=== PATIENT | female | born 2000 | race Caucasian/White ===

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

== ENCOUNTER 2023-03-23 23:51 | Emergency (ER) | payer MEDICAID, SELFPAY ==
[2023-03-24 00:04] VITALS: BP 130/80; PULSE 84; RESP 16; TEMP 37; O2SAT 99; BMI 23.8
[2023-03-24 01:30] LABS: Basophils % 0.4 %; Eosinophils % 0.1 %; Hematocrit 38.5 % (37.0-47.0); Hemoglobin 12.4 g/dL (11.5-15.3); Lymphocytes # 1.5 10^3/uL (1.5-6.5); Lymphocytes % 18.2 %; Mean Corpuscular HGB Conc 32.2 g/dL (30.0-36.0); Mean Corpuscular Hemoglobin 29.7 pg (28.0-34.0); Mean Corpuscular Volume 92.1 fl (81-99); Mean Platelet Volume 9.8 fL (7.4-10.4); Monocytes # 0.6 10^3/uL (0.2-0.9); Monocytes % 7.7 %; Neutrophils # 6.04 10^3/uL (1.8-8.0); Neutrophils % 73.5 %; Nucleated Red Blood Cells % 0 %; Platelet Count 262 10^3/cmm (130-400); Red Blood Count 4.18 10^6/uL (4.1-5.3); Red Cell Distribution Width 12.1 % (12.1-15.1); White Blood Count 8.2 10^3/uL (4.5-13.0)
[2023-03-24 01:32] LABS: HCG, Serum Qual Negative (Negative)
[2023-03-24 01:42] LABS: Alanine Aminotransferase 16 U/L (0-33); Albumin Level 4.9 g/dL (3.5-5.2); Alkaline Phosphatase 63 U/L (35-105); Anion Gap 15.6 (5-19); Aspartate Amino Transferase 16 U/L (0-32); Blood Urea Nitrogen 7 mg/dL (6-20); Calcium 9.8 mg/dL (8.5-10.5); Carbon Dioxide 25 mmol/L (22-29); Chloride 105 mmol/L (98-107); Creatinine Clr Calc Pharmacy 108.5709; Globulin 3.3 g/dL (1.3-4.6); Glomerular Filtration Rate 106.7 mL/min (90-130); Glucose 90 mg/dL (65-115); Lipase 35 U/L (13-60); Osmolality Calculated 292 mOsm/kg (285-295); Potassium 3.6 mmol/L (3.5-5.1); Sodium 142 mmol/L (136-145); Total Protein 8.2 g/dL (6.6-8.7)
--- NOTE | 2023-03-24 02:35 | W.ED.ABDPA2 ---
HPI - Abdominal Pain General: Chief Complaint: Abdominal Pain Stated Complaint: abdomen x 3 weeks, nausea Time Seen by Provider: 03/24/23 00:10 Source: patient Mode of arrival: ambulatory Limitations: no limitations History of Present Illness: 22-year-old female states she been having abdominal pain over the last 3 weeks. States intermittent nature seems worse when she flexes her abdomen is a sharp pain. She describes the pain is diffuse to me. She said it moved right lower quadrant in triage but she states that she is cut hurts all over at times states she is in no pain right now she states that not tender to touch at all when she pushes on her abdomen. She had some nausea denies any vomiting or diarrhea denies any vaginal discharge. Associated Symptoms: Denies chills, diarrhea, dysuria, fever(s), nausea and vomiting Review of Systems Const: Denies: fever(s), chills, body aches or change in appetite ENMT: Denies: throat pain or dental pain Card: Denies: chest pain Resp: Denies: dyspnea GI: Reports: abdominal pain; Denies: nausea, vomiting or diarrhea : Denies: dysuria Musc: Denies: neck pain or back pain Skin/Breast: Denies: rash Neuro: Denies: headache(s) PFS ED PFSH: Medical History (Updated 03/24/23 @ 03:29 by Lea West MD) No pertinent past medical history Social History (Updated 03/24/23 @ 02:37 by Lea West MD) Substance/Drug Use: never Physical Exam Const: COMMON NORMALS: no acute distress, patient oriented x3 and healthy appearing HENMT: COMMON NORMALS: normocephalic and atraumatic HEAD & SCALP: normocephalic and atraumatic Neck/C-Spine: COMMON NORMALS: full ROM and supple Chest: COMMONS NORMALS: normal inspection of the chest Resp: COMMON NORMALS: normal respiratory effort, No retractions, No use of accessory muscles and clear to auscultation bilaterally AUSCULTATION: clear to auscultation bilaterally Cardio: COMMON NORMALS: regular rate, regular rhythm and No murmurs present (Cardio) RATE: regular rate RHYTHM: regular rhythm GI: COMMON NORMALS: Normal to inspection, nondistended, normoactive bowel sounds present, Soft to palpation, non-tender and no masses PALPATION: Yes Soft to palpation Extremity: COMMON NORMALS: normal to inspection and full ROM Neuro: COMMON NORMALS: patient oriented x3, moves all extremities and no focal motor deficits Psych: COMMON NORMALS: mental status grossly normal, Normal thought process present and cooperative THOUGHT PROCESS: Normal thought process present Skin: COMMON NORMALS: no rashes or lesions noted and no wounds GENERAL SKIN EXAM: no rashes or lesions noted Course Vital Signs: Vital signs: Vital Signs Temperature 98.6 F 03/24/23 00:04 Pulse Rate 68 03/24/23 02:46 Respiratory Rate 16 03/24/23 00:04 Blood Pressure 96/52 03/24/23 02:46 Pulse Oximetry 99 03/24/23 02:46 Oxygen Delivery Me thod Room Air 03/24/23 00:04 MDM - Abdominal Pain Medical Decision Making Patient presents here with abdominal pains been on for weeks for likely bowel related her pain was completely resolved here with Zofran and Bentyl her blood work is all normal her exam here is benign she has no tenderness no signs of appendicitis or acute surgical abdomen she is stable for discharge we will prescribe her Bentyl Zofran for home she is to follow-up with her PCP and return if worsening. Differential Diagnosis Likely abdominal pain; Unlikely acute appendicitis, calculus of kidney, diverticulitis, pancreatitis or small bowel obstruction Medical Records I reviewed the patient's medical records. Lab Data I reviewed the patient's lab results. 03/24/23 00:59 03/24/23 00:59 Labs/Radiology: Laboratory Results WBC 8.2 10^3/uL (4.5-13.0) 03/24/23 00:59 Corrected WBC Cancelled 03/23/23 00:59 RBC 4.18 10^6/uL (4.1-5.3) 03/24/23 00:59 Hgb 12.4 g/dL (11.5-15.3) 03/24/23 00:59 Hct 38.5 % (37.0-47.0) 03/24/23 00:59 MCV 92.1 fl (81-99) 03/24/23 00:59 MCH 29.7 pg (28.0-34.0) 03/24/23 00:59 MCHC 32.2 g/dL (30.0-36.0) 03/24/23 00:59 RDW 12.1 % (12.1-15.1) 03/24/23 00:59 Plt Count 262 10^3/cmm (130-400) 03/24/23 00:59 MPV 9.8 fL (7.4-10.4) 03/24/23 00:59 Gran % Cancelled 03/23/23 00:59 Neut % (Auto) 73.5 % 03/24/23 00:59 Lymph % (Auto) 18.2 % 03/24/23 00:59 [place] % (Auto) 7.7 % 03/24/23 00:59 Eos % (Auto) 0.1 % 03/24/23 00:59 Baso % (Auto) 0.4 % 03/24/23 00:59 Neut # (Auto) 6.04 10^3/uL (1.8-8.0) 03/24/23 00:59 Lymph # (Auto) 1.5 10^3/uL (1.5-6.5) 03/24/23 00:59 [place] # (Auto) 0.6 10^3/uL (0.2-0.9) 03/24/23 00:59 Eos # (Auto) 0.0 10^3/uL (0.0-0.8) 03/24/23 00:59 Baso # (Auto) 0.0 10^3/uL (0.0-0.1) 03/24/23 00:59 Absolute Gran (auto) Cancelled 03/23/23 00:59 Nucleated RBC % (auto) 0 % 03/24/23 00:59 Nucleated RBCs # 0.0 /100WBC 03/24/23 00:59 Sodium 142 mmol/L (136-145) 03/24/23 00:59 Potassium 3.6 mmol/L (3.5-5.1) 03/24/23 00:59 Chloride 105 mmol/L (98-107) 03/24/23 00:59 Carbon Dioxide 25 mmol/L (22-29) 03/24/23 00:59 Anion Gap 15.6 (5-19) 03/24/23 00:59 BUN 7 mg/dL (6-20) 03/24/23 00:59 Creatinine 0.7 mg/dL (0.5-0.9) 03/24/23 00:59 GFR Calculation 106.7 mL/min (90-130) 03/24/23 00:59 Glucose 90 mg/dL (65-115) 03/24/23 00:59 Calculated Osmolality 292 mOsm/kg (285-295) 03/24/23 00:59 Calcium 9.8 mg/dL (8.5-10.5) 03/24/23 00:59 Total Bilirubin 1.0 mg/dL (0.15-1.2) 03/24/23 00:59 AST 16 U/L (0-32) 03/24/23 00:59 ALT 16 U/L (0-33) 03/24/23 00:59 Alkaline Phosphatase 63 U/L (35-105) 03/24/23 00:59 Total Protein 8.2 g/dL (6.6-8.7) 03/24/23 00:59 Albumin 4.9 g/dL (3.5-5.2) 03/24/23 00:59 Globulin 3.3 g/dL (1.3-4.6) 03/24/23 00:59 Lipase 35 U/L (13-60) 03/24/23 00:59 HCG, Qual Negative (Negative) 03/24/23 00:59 Urine Color Yellow (Yellow) 03/24/23 02:28 Urine Appearance Clear (CLEAR) 03/24/23 02:28 Urine pH 6 (5-7) 03/24/23 02:28 Ur Specific [place] 1.015 (1.005-1.030) 03/24/23 02:28 Urine Protein Neg (Negative) 03/24/23 02:28 Urine Glucose (UA) Norm (Normal) 03/24/23 02:28 Urine Ketones 1+ (Negative) H 03/24/23 02:28 Urine Blood Neg (Negative) 03/24/23 02:28 Urine Nitrate Negative (Negative) 03/24/23 02:28 Urine Bilirubin Neg (Negative) 03/24/23 02:28 Urine Urobilinogen Neg mg/dL (Negative) 03/24/23 02:28 Ur Leukocyte Esterase Negative (Negative) 03/24/23 02:28 Discharge Plan Discharge Patient Disposition: Home Clinical Impression: Abdominal pain Prescriptions: New ondansetron 4 mg tablet,disintegrating 4 mg PO Q6H PRN (Reason: nausea and vomiting) Qty: 14 0RF dicyclomine 20 mg tablet 20 mg PO TID PRN (Reason: abdominal pain) Qty: 20 0RF Discharge Orders: Discharge ED (Routine); Ordered 03/24/23 Ordered By: Lea West Discharge Diet: Advance as tolerated Discharge Activity: Resume usual activity Patient Instructions: Abdominal Pain (ED) Coding Level of Care Code ED Manager Training for Kimberly Momin
[2023-03-24 02:40] LABS: Add Urine Microscopic? NO; Charge for UA Resulting for Rev
[2023-03-24 02:42] LABS: Bilirubin Urine Neg (Negative); Blood Urine Neg (Negative); Glucose Urine UA Norm (Normal); Ketones Urine 1+ (Negative); Leukocyte Esterase Urine Negative (Negative); Nitrate Urine Negative (Negative); Protein Urine Neg (Negative); Specific Gravity, Urine 1.015 (1.005-1.030); Urine Appearance Clear (CLEAR); Urine Color Yellow (Yellow); Urobilinogen Urine Neg (Negative); pH Urine 6 (5-7)
[2023-03-24] MEDS: ondansetron 4 MG Tablet PO (02:44)
[2023-03-24] MEDS: dicyclomine 20 mg Tablet PO (02:45)
[2023-03-24 02:46] VITALS: BP 96/52; PULSE 68; O2SAT 99
[2023-03-24 03:48] VITALS: BP 96/52; PULSE 68; RESP 16; TEMP 37; O2SAT 99
--- NOTE | 2023-04-02 10:05 | DCPLANNER ---
TCM called patient due to no primary care physician - no answer at this time.
== END 2023-03-24 03:52 | disposition home or self-care (01) ==
PROVIDERS: Emergency Provider Emergency Medicine
DX: R10.9 Unspecified abdominal pain (principal)
CPT/HCPCS: 80053; 81003; 83690; 84703; 85025; 99283; Q0162

== ENCOUNTER 2023-12-04 07:54 | Oncology outpatient (recurring) (ONCR) | payer MEDICAID, SELFPAY ==
[2023-12-04 11:00] VITALS: BP 93/61; PULSE 88; RESP 16; TEMP 36.4; O2SAT 98
[2023-12-04 11:10] VITALS: BP 103/69; PULSE 94; RESP 16; TEMP 36.2; O2SAT 99
== END 2023-12-31 23:59 | disposition home or self-care (01) ==
PROVIDERS: Visit Provider Family Medicine
DX: Z67.91 Unspecified blood type, Rh negative (principal); O26.899 Other specified pregnancy related conditions, unspecified trimester; Z23 Encounter for immunization
CPT/HCPCS: 36415; 36430; 86850; 86900; 90384

== ENCOUNTER 2024-02-08 08:05 | Inpatient (IN) | payer MEDICAID, SELFPAY ==
[2024-02-08] VITALS (70 sets, daily range): BP systolic 89–143; BP diastolic 49–72; PULSE 72–109; TEMP 36.1–36.8; O2SAT 100; BMI 35.3
[2024-02-08 08:51] LABS: Basophils % 0.2 %; Eosinophils % 0.1 %; Hematocrit 30.5 % (36-47); Lymphocytes # 1.4 10^3/uL (0.8-4.8); Lymphocytes % 7.5 %; Mean Corpuscular HGB Conc 31.1 g/dL (30-55); Mean Corpuscular Hemoglobin 26.8 pg (27-33); Mean Corpuscular Volume 86.2 fl (85-98); Mean Platelet Volume 11.1 fL (7.4-10.4); Monocytes # 1.4 10^3/uL (0.2-0.9); Monocytes % 7.6 %; Neutrophils # 15.64 10^3/uL (1.8-7.7); Nucleated Red Blood Cells % 0 %; Platelet Count 285 10^3/cmm (157-399); Red Blood Count 3.54 10^6/uL (3.85-5.65); Red Cell Distribution Width 13.6 % (12.1-15.1); White Blood Count 18.63 10^3/uL (3.29-11.43)
[2024-02-08 09:02] LABS: Amphetamines Screen Urine Negative (Negative); Barbiturates Screen Urine Negative (Negative); Benzodiazepines Screen Urine Negative (Negative); Cocaine Screen Urine Negative (Negative); Opiate Screen Urine Negative (Negative); PCP Screen Urine Negative (Negative); THC Screen Urine Negative (Negative)
[2024-02-08] MEDS: dextrose 5%-lactated ringers 1,000 ML 125 ML IV ×3 (09:02→18:16)
[2024-02-08] MEDS: oxytocin 30 UNIT/500 ML BAG IV (09:55)
--- NOTE | 2024-02-08 16:05 | P.HP_ITS ---
Providers/Chief Complaint 2 Admitting Physician: Francesca Erickson MD Primary Care Provider: Francesca Erickson MD Chief Complaint: IOL History of Present Illness Mignon Kapoor is a 23 year old female G1, P0 at 40 weeks 5 days gestation who is here for postdate induction. She has had routine care at [facility]. There have been no complications during the Review of Systems 2 Narrative: No fever, no contractions, no loss of fluid, no vaginal bleeding,positive movement Medications/Allergies Home Medications Medication Instructions Recorded Confirmed Last Taken Type dicyclomine 20 mg tablet 20 mg PO TID PRN abdominal pain 03/24/23 Unknown Rx #20 tabs ondansetron 4 mg disintegrating 4 mg PO Q6H PRN nausea and 03/24/23 Unknown Rx tablet vomiting #14 tabs Allergies Allergy/AdvReac Type Severity Reaction Status Date / Time No Known Allergies Allergy Verified 09/07/20 12:24 PFSH Acute 2 PFSH: Medical History (Updated 02/08/24 @ 16:09 by Francesca Erickson MD) No pertinent past medical history Social History (Updated 03/24/23 @ 02:37 by Lea West MD) Substance/Drug Use: never Female Reproductive History: : 1 Vitals/I&O/Wt Last Vital Signs Temp 98.2 F 02/08/24 14:30 Pulse 83 02/08/24 16:01 BP 102/63 02/08/24 16:01 O2 Del Method Room Air 02/08/24 08:00 02/08/24 02/08/24 02/08/24 06:59 14:59 22:59 Intake Total 747.250 / 747.250 Balance 747.250 / 747.250 Weight last 48 hrs Weight 87.543 kg Physical Exam 2 Narrative: Alert and oriented, resting in bed, abdomen is gravid and nontender sterile vaginal examination 1 to 2 cm 85% effaced -2 station with the head well engaged. Data 02/08/24 08:30 Other data: heart tones have had minimal to moderate variability. Currently it is moderate variability with 10 x 10 accelerations but there have been no 15 x 15 accelerations. When the patient first presented to labor and delivery, before she was started on any Pitocin, it appeared that she was leslye on her own but not feeling them and having almost late appearing decelerations with minimal variability. Despite fluid bolus and position changes this did not resolve. Pitocin was started to see if it would make or break the labor process. Once Pitocin was initiated we began having moderate variability but have continued to not have 15 x 15 accelerations. Artificial rupture of membranes was performed and there was thick meconium. labs: Blood type O-, antibody negative, hepatitis B nonreactive, hepatitis C nonreactive, HIV nonreactive, rubella immune, GC chlamydia negative, RPR nonreactive, UDS positive for marijuana, Q low risk, she passed her glucose tolerance test, she was GBS negative. A&P Assessment and plan (1) Post-term , 40-42 weeks of gestation: Expectant management of labor and delivery I am satisfied with the moderate variability that the infant has had recently and we will continue to monitor closely. Attestations 2 Medical Necessity Statement*: Expectant management of labor and delivery Coding Level of Care Code Acute Code for Chg Fwd Diagnoses Post-term , 40-42 weeks of gestation O48.0
[2024-02-08] MEDS: lactated ringers 1,000 ML 999 ML IV ×2 (16:24→23:57)
[2024-02-08] MEDS: ROPivacaine premix 200 MG/100 ML PREMIX 10 MG EPIDURAL ×2 (17:13→23:57)
--- NOTE | 2024-02-08 17:22 | P.ANESASSM_ITS ---
Pre-Anesthetic Assessment Height/Weight: Height 1.57 m Weight 87.543 kg Temp Pulse BP Pulse Ox O2 Del Method 98.2 F 81 110/56 100 Room Air 02/08/24 14:30 02/08/24 17:19 02/08/24 17:19 02/08/24 17:05 02/08/24 08:00 Epidural Familial anesthetic complications: none Was Beta Juan Carlos taken within 24 hours: N/A Was Clonidine taken within 24 hours: N/A Last intake: > 8 hrs Social No alcohol and No tobacco Exam alert, oriented x 3, clear to auscultation bilaterally and regular rate & rhythm Airway Mallampati: Class I Dentition: full Anesthetic Plan ASA status: 2 Anesthesia: Regional (specify below) Risk of > 500 ml blood loss (7ml/kg in children): Yes, adequate IV access and fluids planned Medications/Allergies Home Medications Medication Instructions Recorded Confirmed Last Taken Type dicyclomine 20 mg tablet 20 mg PO TID PRN abdominal pain 03/24/23 Unknown Rx #20 tabs ondansetron 4 mg disintegrating 4 mg PO Q6H PRN nausea and 03/24/23 Unknown Rx tablet vomiting #14 tabs Allergies Allergy/AdvReac Type Severity Reaction Status Date / Time No Known Allergies Allergy Verified 09/07/20 12:24 Current Medications Generic Name Dose Route Start Last Admin Trade Name Freq PRN Reason Stop Dose Admin Dextrose/Lactated Ringer's 1,000 mls @ 125 mls/hr 02/08/24 08:30 02/08/24 14:29 Dextrose 5%-Lactated Ringers IV 125 mls/hr .Q8H BRENDA Administration Oxytocin 30 unit in 500 mls @ 1 mls/hr 02/08/24 08:30 02/08/24 14:25 Pitocin IV 10 milliunit/min .Q24H BRENDA 10 mls/hr Titration Protocol 1 MILLIUNIT/MIN Lactated Ringer's 1,000 mls @ 999 mls/hr 02/08/24 16:17 02/08/24 16:24 Lactated Ringers IV 999 mls/hr .Q1H1M PRN Administration See label comments Ropivacaine 200 mg in 100 mls @ 10 mls/hr 02/08/24 16:30 02/08/24 17:13 Naropin Premix EPIDURAL 10 mls/hr .Q10H BRENDA Administration PFSH Anesthesia Medical History (Updated 02/08/24 @ 16:09 by Francesca Erickson MD) No pertinent past medical history Social History (Updated 03/24/23 @ 02:37 by Lea West MD) Substance/Drug Use: never Female Reproductive History : 1 Data Anesthesia 02/08/24 08:30 Short CBC 02/08/24 Range/Units 08:30 WBC 18.63 H (3.29-11.43) 10^3/uL Hgb 9.50 L (11.27-16.99) g/dL Hct 30.5 L (36-47) % MCV 86.2 (85-98) fl Plt Count 285 (157-399) 10^3/cmm Neut % (Auto) 84.0 % Neut # (Auto) 15.64 H (1.8-7.7) 10^3/uL Blood Bank 02/08/24 02/08/24 04:18 10:15 Blood Type Cancelled O Negative Rho(D) Type Cancelled Rh negative Antibody Screen Cancelled Negative Cardiac Studies: 2 No Data to Display
--- NOTE | 2024-02-08 17:23 | ANES.PROC ---
Anesthesia Procedures Procedure/Date: 02/08/24 Epidural: Time Out Performed: Yes Consents Signed: Procedure Consent Consent: requested by attending/covering physician, from patient, from other, risks and benefits reviewed and patient agrees to proceed Lumbar Level: L3-L4 Epidural position: sitting Epidural procedure: sterile prep of area, 1% lidocaine to numb the area, 18 g needle, negative for paresthesia passed, neg for paresthesia, test dose given, 1.5% xylocaine 1:200k epi (5), 0.2% Ropivacaine bolus ml (5), placed PCEA, no systemic response, sterile dressing applied, L.U.D. no apparent complications and 0.2% Ropiavacaine @ mls/hr (13) Additional Comments: GARFIELD at 5 cm, threaded to 11 cm
[2024-02-09] VITALS (26 sets, daily range): BP systolic 108–140; BP diastolic 57–84; PULSE 75–112; RESP 16–18; TEMP 36.4–37.1; O2SAT 96–99
--- NOTE | 2024-02-09 02:40 | PM.DELIVERY ---
Delivery Note: Date of delivery: February 09, 2024 Delivery: This is a 23-year-old G1, P0 at 40 weeks 5 days gestation who was admitted for induction. Her cervix was favorable so she was started on Pitocin. She received an epidural for pain management. She underwent artificial rupture of membranes with thick meconium. heart tones were nonreactive and varied from minimal to moderate variability. She would have 10 x 10 accelerations but no 15 x 15 accelerations. She had a normal spontaneous vaginal delivery of a viable female infant weight 3175 g, 7 pounds 0 ounces over an intact perineum. The was stunned and meconium stained at delivery so she was taken to the warmer for deep suction. The cord was clamped and cut. The placenta was delivered grossly intact and normal to inspection. There was a first-degree right vaginal laceration that was hemostatic and did not require suturing. Estimated blood loss 125 mL. Coding Level of Care Code Acute Code for Chg Fwd
[2024-02-09] MEDS: oxytocin 30 UNIT/500 ML BAG 600 UNIT IV (04:49)
[2024-02-09] MEDS: PRENATAL VIT NO.130/IRON/FOLIC 1 EACH TABLET PO (10:18)
[2024-02-09] MEDS: ibuprofen 800 mg tablet PO ×3 (10:18→21:02)
[2024-02-09] MEDS: docusate sodium 100 mg Capsule PO ×2 (10:19→18:49)
--- NOTE | 2024-02-09 10:33 | ANE.PACU2 ---
Inpatient post-anesthesia follow up: Airway intact: Yes Vital signs: Temperature 97.8 F Pulse Rate 100 Respiratory Rate 16 Blood Pressure 132/68 Pulse Oximetry 97 Oxygen Delivery Me thod Room Air Oxygen Flow Rate Fraction of Inspir ed Oxygen Hydration adequate: Yes Nausea and vomiting: No Pain level: 2 Mental status: Baseline Epidural Start/End: Epidural Start Date: 02/08/24 Epidural Start Time: 17:00 Epidural End Date: 02/09/24 Epidural End Time: 02:40
[2024-02-09 15:38] LABS: Hematocrit 27.3 % (36-47); Mean Corpuscular HGB Conc 31.5 g/dL (30-55); Mean Corpuscular Hemoglobin 26.9 pg (27-33); Mean Corpuscular Volume 85.3 fl (85-98); Mean Platelet Volume 10.7 fL (7.4-10.4); Platelet Count 269 10^3/cmm (157-399); Red Cell Distribution Width 13.9 % (12.1-15.1); White Blood Count 28.99 10^3/uL (3.29-11.43)
[2024-02-10 04:00] VITALS: BP 121/78; PULSE 94; RESP 18; TEMP 36.6; O2SAT 100
--- NOTE | 2024-02-10 08:46 | P.PN_ITS ---
Subjective 2 Subjective: No problems or concerns, no significant abdominal pain, she states that her bleeding has decreased Vitals/I&O/Wt Last Vital Signs Temp 97.9 F 02/10/24 04:00 Pulse 94 02/10/24 04:00 Resp 18 02/10/24 04:00 BP 121/78 02/10/24 04:00 Pulse Ox 100 02/10/24 04:00 O2 Del Method Room Air 02/10/24 04:00 Physical Exam 2 Narrative: Alert and oriented, up walking around the room, heart regular rate and rhythm, lungs clear to auscultation bilaterally, abdomen is soft and nontender, fundus is firm, extremities have 2+ edema but no calf tenderness Urinary Catheter Management: Brown: Cath Placed During This Visit: yes, but has since been removed by the nurse Reason for Continuing Indwelling Catheter: Decision to DC Catheter Urinary Catheter Date of Insertion: 02/08/24 Urinary Catheter Time of Insertion: 18:15 Date Urinary Catheter Removed: 02/09/24 Time Urinary Catheter Discontinued: 01:30 Data 02/09/24 15:25 A&P Assessment and plan (1) (normal spontaneous vaginal delivery): Routine care Attestations 2 Medical Necessity Statement*: Routine care Coding Level of Care Code Acute Code for Chg Fwd Diagnoses (normal spontaneous vaginal delivery) O80
[2024-02-10] MEDS: PRENATAL VIT NO.130/IRON/FOLIC 1 EACH TABLET PO (10:10)
[2024-02-10] MEDS: ibuprofen 800 mg tablet PO ×3 (10:10→20:32)
[2024-02-10] MEDS: docusate sodium 100 mg Capsule PO ×2 (10:10→20:32)
[2024-02-10 10:12] VITALS: BP 116/73; PULSE 92; RESP 17; TEMP 36.4; O2SAT 100
[2024-02-10 15:25] VITALS: BP 144/73; PULSE 78; RESP 17; TEMP 36.6; O2SAT 99
[2024-02-10 20:34] VITALS: BP 119/68; PULSE 93; RESP 16; TEMP 36.8; O2SAT 100
[2024-02-11 04:00] VITALS: BP 139/84; PULSE 109; RESP 16; O2SAT 99
[2024-02-11 05:46] VITALS: BP 119/79; PULSE 90; RESP 16; TEMP 36.7; O2SAT 100
[2024-02-11] MEDS: PRENATAL VIT NO.130/IRON/FOLIC 1 EACH TABLET PO (10:12)
[2024-02-11] MEDS: ibuprofen 800 mg tablet PO (10:12)
[2024-02-11] MEDS: docusate sodium 100 mg Capsule PO (10:13)
--- NOTE | 2024-02-11 12:23 | PM.DCS ---
Discharge Providers Date of Admission: 02/08/24 08:05 Date of Discharge: February 11, 2024 Attending Provider at Admission: Francesca Erickson MD Attending Provider at Discharge: Francesca Erickson MD Primary Care Provider: Francesca Erickson MD Diagnoses at Discharge Discharge Diagnosis (1) (normal spontaneous vaginal delivery): Status: Acute Reason for Visit Reason for Visit: IOL Hospital Course Hospital Course This is a 23-year-old G1 now P1 who had a normal spontaneous vaginal delivery of a viable female infant. She has done well she is ambulating, tolerating a regular diet, has decreased vaginal bleeding. Physical Exam Narrative: Alert and oriented sitting on the bedside, heart regular rate and rhythm, lungs clear to auscultation bilaterally, abdomen soft and nontender, extremities have 2+ edema but no calf tenderness Urinary Catheter Management: Brown: Cath Placed During This Visit: yes, but has since been removed by the nurse Reason for Continuing Indwelling Catheter: Decision to DC Catheter Urinary Catheter Date of Insertion: 02/08/24 Urinary Catheter Time of Insertion: 18:15 Date Urinary Catheter Removed: 02/09/24 Time Urinary Catheter Discontinued: 01:30 Discharge Data Studies Completed and Pending Laboratory Results WBC 28.99 10^3/uL (3.29-11.43) H 02/09/24 15:25 RBC 3.20 10^6/uL (3.85-5.65) L 02/09/24 15:25 Hgb 8.60 g/dL (11.27-16.99) L 02/09/24 15:25 Hct 27.3 % (36-47) L 02/09/24 15:25 MCV 85.3 fl (85-98) 02/09/24 15:25 MCH 26.9 pg (27-33) L 02/09/24 15:25 MCHC 31.5 g/dL (30-55) 02/09/24 15:25 RDW 13.9 % (12.1-15.1) 02/09/24 15:25 Plt Count 269 10^3/cmm (157-399) 02/09/24 15:25 MPV 10.7 fL (7.4-10.4) H 02/09/24 15:25 Neut % (Auto) 84.0 % 02/08/24 08:30 Lymph % (Auto) 7.5 % 02/08/24 08:30 [place] % (Auto) 7.6 % 02/08/24 08:30 Eos % (Auto) 0.1 % 02/08/24 08:30 Baso % (Auto) 0.2 % 02/08/24 08:30 Neut # (Auto) 15.64 10^3/uL (1.8-7.7) H 02/08/24 08:30 Lymph # (Auto) 1.4 10^3/uL (0.8-4.8) 02/08/24 08:30 [place] # (Auto) 1.4 10^3/uL (0.2-0.9) H 02/08/24 08:30 Eos # (Auto) 0.0 10^3/uL (0.0-0.8) 02/08/24 08:30 Baso # (Auto) 0.0 10^3/uL (0.0-0.1) 02/08/24 08:30 Nucleated RBC % (auto) 0 % 02/08/24 08:30 Nucleated RBCs # 0.0 /100WBC 02/08/24 08:30 Urine Opiates Screen Negative ng/mL (Negative) 02/08/24 08:20 Ur Barbiturates Screen Negative ng/mL (Negative) 02/08/24 08:20 Ur Phencyclidine Scrn Negative ng/mL (Negative) 02/08/24 08:20 Ur Amphetamines Screen Negative ng/mL (Negative) 02/08/24 08:20 U Benzodiazepines Scrn Negative ng/mL (Negative) 02/08/24 08:20 Urine Cocaine Screen Negative ng/mL (Negative) 02/08/24 08:20 U Marijuana (THC) Screen Negative ng/mL (Negative) 02/08/24 08:20 Blood Type O Negative 02/08/24 10:15 Rho(D) Type Rh negative 02/08/24 10:15 Antibody Screen Negative 02/08/24 10:15 Screen Negative (Negative) 02/09/24 15:28 Vitals Last Vital Signs Temp 98.0 F 02/11/24 05:46 Pulse 90 02/11/24 05:46 Resp 16 02/11/24 05:46 BP 119/79 02/11/24 05:46 Pulse Ox 100 02/11/24 05:46 O2 Del Method Room Air 02/11/24 04:00 Discharge Plan Discharge Patient Disposition: Home Condition: Stable Prescriptions: Discontinued ondansetron 4 mg tablet,disintegrating 4 mg PO Q6H PRN (Reason: nausea and vomiting) Qty: 14 0RF dicyclomine 20 mg tablet 20 mg PO TID PRN (Reason: abdominal pain) Qty: 20 0RF Discharge Orders: Discharge Order (Routine); Ordered 02/11/24 Ordered By: Francesca Erickson Referrals: Francesca Erickson MD [Primary Care Provider] - 03/03/24 1:15 pm Discharge Diet: Usual diet Discharge Activity: Limit activity as instructed Patient Instructions: Depression (DC), Preeclampsia During (DC), Bleeding (DC), Opioid Safety (DC), Hemorrhage (DC), OB Discharge Report, OB Food/Drug Interaction Guide, OB Care at Home, Opioid Safety, OB Vaginal Deliveries, Abnormal Bleeding Activity Restrictions/Additional Instructions: Nothing per the vagina for 6 weeks. Discharge Attestations Time Spent in Discharge Care*: less than 30 min Quality Metrics Clinical Quality Measures [ No reported AMI, CVA or VTE this stay] Coding Level of Care Code Acute Code for Chg Fwd Diagnoses (normal spontaneous vaginal delivery) O80
[2024-02-11 13:00] VITALS: BP 117/69; PULSE 89; RESP 16; TEMP 37
== END 2024-02-11 13:55 | disposition home or self-care (01) | DRG 807 ==
LOC: OPOB 08:05 → OBGYN 08:05
PROVIDERS: Admitting Provider Family Medicine; PCP Family Medicine; Visit Provider Family Medicine
DX: O48.0 Post-term pregnancy (principal); Z37.0 Single live birth; O77.0 Labor and delivery complicated by meconium in amniotic fluid; Z3A.40 40 weeks gestation of pregnancy
CPT/HCPCS: 36415; 36430; 51702; 59025; 59409; 80306; 85025; 85027; 85460; 86850; 86900; 90384; 96372; 99211; J2590; J2795; J7120; J7121

== ENCOUNTER 2025-07-04 08:18 | Emergency (ER) | payer SELFPAY ==
[2025-07-04 08:30] VITALS: BP 114/74; PULSE 83; RESP 16; TEMP 36.7; O2SAT 100; BMI 24.7
--- NOTE | 2025-07-04 08:36 | ECG_ITS ---
[facility] Test Date: 2025-07-04 Pat Name: Mignon Kapoor Department: Room: Gender: Female College Service Officer: : 2000 Requested By: Lea West Order Number: [id number] Simón MD: Tova Farias M.D. Measurements Intervals [place] Rate: 74 P: 72 WV: 142 QRS: 48 QRSD: 88 T: 66 QT: 383 QTc: 426 Interpretive Statements SINUS RHYTHM WITH MARKED SINUS ARRHYTHMIA Compared to ECG 07/18/2019 19:39:13 No significant changes Electronically Signed On 07-04-2025 20:48:58 CDT by Tova Farias M.D. [email or web address]
--- NOTE | 2025-07-04 08:39 | XR_ITS ---
WS: [id number] PORTABLE CHEST HISTORY: sob COMPARISON: 07/18/2019 Lungs are clear and well expanded. No pleural effusion or pneumothorax. Cardiac size: Normal. Mediastinum/Aorta: Normal mediastinum. No osseous abnormality seen. XR/XR chest 1V portable [id number] IMPRESSION: Unremarkable portable chest.
--- NOTE | 2025-07-04 08:43 | ED_ITS ---
HPI - SOB/Dyspnea 2 General: Chief Complaint: Shortness of Breath/Dyspnea Stated Complaint: Sos joints looks and cant keep anything down Time Seen by Provider: 07/04/25 08:20 Source: patient Mode of arrival: ambulatory Limitations: no limitations History of Present Illness: HPI Narrative: 25-year-old female who states that she h as been having some shortness of breath chest pain since this morning. States she just feels like she cannot get a breath in. States she does have a history anxiety and does feel quite anxious. She denies any fevers she denies any cough she denies any pain. Associated symptoms: Reports chest pain; Deny abdominal pain, fever(s), nausea or vomiting Related Data Allergies Allergy/AdvReac Type Severity Reaction Status Date / Time No Known Allergies Allergy Verified 09/07/20 12:24 Review of Systems 2 Const: Denies: fever(s), chills, body aches or change in appetite ENMT: Denies: throat pain or dental pain Card: Reports: chest pain Resp: Reports: dyspnea GI: Denies: abdominal pain, nausea, vomiting or diarrhea Musc: Denies: neck pain or back pain Skin/Breast: Denies: rash Neuro: Denies: headache(s) PFSH ED 2 PFSH: Medical History No pertinent past medical history Social History Substance/Drug Use: never Physical Exam 2 Const: COMMON NORMALS: no acute distress, patient oriented x3 and healthy appearing HENMT: COMMON NORMALS: normocephalic and atraumatic HEAD & SCALP: n ormocephalic and atraumatic Eye: COMMON NORMALS: conjunctivae normal CONJUNCTIVA: Yes conjunctivae normal Neck/C-Spine: COMMON NORMALS: full ROM and supple Chest: COMMONS NORMALS: normal inspection of the chest and normal palpation of entire chest wall Resp: COMMON NORMALS: normal respiratory effort, No retractions, No use of accessory muscles and clear to auscultation bilaterally AUSCULTATION: clear to auscultation bilaterally Cardio: COMMON NORMALS: regular rate, regular rhythm and No murmurs present (Cardio) RATE: regular rate RHYTHM: regular rhythm GI: COMMON NORMALS: Normal to inspection, nondistended, normoactive bowel sounds present, Soft to palpation, non-tender and no masses PALPATION: Yes Soft to palpation Extremity: COMMON NORMALS: normal to inspection and full ROM Neuro: COMMON NORMALS: patient oriented x3, moves all extremities and no focal motor deficits Psych: COMMON NORMALS: mental status grossly normal, Normal thought process present and cooperative THOUGHT PROCESS: Normal thought process present Skin: COMMON NORMALS: no rashes or lesions noted and no wounds GENERAL SKIN EXAM: no rashes or lesions noted Course 2 Vital Signs: Vital signs: Vital Signs Temperature 98.1 F 07/04/25 08:30 Pulse Rate 83 07/04/25 08:30 Respiratory Rate 16 07/04/25 08:30 Blood Pressure 114/74 07/04/25 08:30 Pulse Oximetry 100 07/04/25 08:30 Oxygen Delivery Me thod Room Air 07/04/25 08:30 MDM - SOB/Dyspnea Medical Decision Making Patient presents here with dyspnea likely from anxiety she feels improved here after Ativan her blood work here is normal D-dimer is negative no signs of pneumonia no signs of pulmonary embolism she stable for discharge she is follow- up with PCP and return if worsening. Medical Records I reviewed the patient's medical records. Lab Data I reviewed the patient's lab results. 07/04/25 08:55 07/04/25 08:55 Labs/Radiology: Radiology Impressions Chest X-Ray 07/04/25 08:39 IMPRESSION: Unremarkable portable chest. Laboratory Results WBC 5.16 10^3/uL (3.29-11.43) 07/04/25 08:55 RBC 4.40 10^6/uL (3.85-5.65) 07/04/25 08:55 Hgb 12.50 g/dL (11.27-16.99) 07/04/25 08:55 Hct 37.5 % (36-47) 07/04/25 08:55 MCV 85.2 fl (85-98) 07/04/25 08:55 MCH 28.4 pg (27-33) 07/04/25 08:55 MCHC 33.3 g/dL (30-55) 07/04/25 08:55 RDW 13.2 % (12.1-15.1) 07/04/25 08:55 Plt Count 267 10^3/cmm (157-399) 07/04/25 08:55 MPV 9.5 fL (7.4-10.4) 07/04/25 08:55 Neut % (Auto) 59.6 % 07/04/25 08:55 Lymph % (Auto) 29.1 % 07/04/25 08:55 [place] % (Auto) 10.5 % 07/04/25 08:55 Eos % (Auto) 0.2 % 07/04/25 08:55 Baso % (Auto) 0.4 % 07/04/25 08:55 Neut # (Auto) 3.08 10^3/uL (1.8-7.7) 07/04/25 08:55 Lymph # (Auto) 1.5 10^3/uL (0.8-4.8) 07/04/25 08:55 [place] # (Auto) 0.5 10^3/uL (0.2-0.9) 07/04/25 08:55 Eos # (Auto) 0.0 10^3/uL (0.0-0.8) 07/04/25 08:55 Baso # (Auto) 0.0 10^3/uL (0.0-0.1) 07/04/25 08:55 Nucleated RBC % (auto) 0 % 07/04/25 08:55 Nucleated RBCs # 0.0 /100WBC 07/04/25 08:55 D-Dimer <= 0.27 ug/mLFEU (0-0.59) 07/04/25 08:55 Sodium 139 mmol/L (136-145) 07/04/25 08:55 Potassium 3.6 mmol/L (3.5-5.1) 07/04/25 08:55 Chloride 102 mmol/L (98-107) 07/04/25 08:55 Carbon Dioxide 19 mmol/L (22-29) L 07/04/25 08:55 Anion Gap 21.6 (5-19) H 07/04/25 08:55 BUN 8 mg/dL (6-20) 07/04/25 08:55 Creatinine 0.7 mg/dL (0.5-0.9) 07/04/25 08:55 GFR Calculation 103.7 mL/min (90-130) 07/04/25 08:55 Glucose 121 mg/dL (65-115) H 07/04/25 08:55 Calculated Osmolality 288 mOsm/kg (285-295) 07/04/25 08:55 Calcium 10.5 mg/dL (8.5-10.5) 07/04/25 08:55 Total Bilirubin 1.3 mg/dL (0.15-1.2) H 07/04/25 08:55 AST 36 U/L (0-32) H 07/04/25 08:55 ALT 54 U/L (0-33) H 07/04/25 08:55 Alkaline Phosphatase 64 U/L (35-105) 07/04/25 08:55 Total Protein 8.2 g/dL (6.6-8.7) 07/04/25 08:55 Albumin 4.9 g/dL (3.5-5.2) 07/04/25 08:55 Globulin 3.3 g/dL (1.3-4.6) 07/04/25 08:55 Lipase 31 U/L (13-60) 07/04/25 08:55 HCG, Qual Negative (Negative) 07/04/25 08:55 All radiology interpretation(s) finalized by discharge EKG Data EKG 1: I personally reviewed and interpreted this EKG as follows: EKG Interpretation Date: 07/04/25 EKG interpretation time: 08:36 Interpretation: nsr hr [address] elevation qrs 88 qtc 410 Discharge Plan Discharge Patient Disposition: Home Clinical Impression: Shortness of breath Condition: Stable Discharge Orders: Discharge ED (Routine); Ordered 07/04/25 Ordered By: Lea West Referrals: Francesca Erickson MD [Primary Care Provider, [facility]] - 4-7 days Discharge Diet: Advance as tolerated Discharge Activity: Resume usual activity Patient Instructions: Shortness of Breath (ED) Print Language: Kittitian Coding Level of Care Code ED Roofing Supervisor for Chg Liliane
[2025-07-04 09:02] LABS: Hematocrit 37.5 % (36-47); Hemoglobin 12.50 g/dL (11.27-16.99); Mean Corpuscular HGB Conc 33.3 g/dL (30-55); Mean Corpuscular Hemoglobin 28.4 pg (27-33); Mean Corpuscular Volume 85.2 fl (85-98); Nucleated Red Blood Cells % 0 %; Platelet Count 267 10^3/cmm (157-399); Red Blood Count 4.40 10^6/uL (3.85-5.65); White Blood Count 5.16 10^3/uL (3.29-11.43)
[2025-07-04 09:08] VITALS: PULSE 79; O2SAT 100
[2025-07-04] MEDS: ondansetron 2 mg/ML SDV 2 mL 4 MG IVP (09:21)
[2025-07-04] MEDS: LORazepam 1 MG/0.5 ML injection IVP (09:21)
[2025-07-04 09:25] LABS: HCG, Serum Qual Negative (Negative)
[2025-07-04 09:28] LABS: Alanine Aminotransferase 54 U/L (0-33); Albumin Level 4.9 g/dL (3.5-5.2); Alkaline Phosphatase 64 U/L (35-105); Anion Gap 21.6 (5-19); Aspartate Amino Transferase 36 U/L (0-32); Blood Urea Nitrogen 8 mg/dL (6-20); Calcium 10.5 mg/dL (8.5-10.5); Carbon Dioxide 19 mmol/L (22-29); Chloride 102 mmol/L (98-107); Creatinine Clr Calc Pharmacy 107.6467; Globulin 3.3 g/dL (1.3-4.6); Glucose 121 mg/dL (65-115); Lipase 31 U/L (13-60); Osmolality Calculated 288 mOsm/kg (285-295); Potassium 3.6 mmol/L (3.5-5.1); Sodium 139 mmol/L (136-145); Total Protein 8.2 g/dL (6.6-8.7)
[2025-07-04 09:57] VITALS: BP 104/67; PULSE 63; O2SAT 96
== END 2025-07-04 10:00 | disposition home or self-care (01) ==
PROVIDERS: Emergency Provider Emergency Medicine; PCP Family Medicine
DX: R06.02 Shortness of breath (principal)
CPT/HCPCS: 36415; 71045; 80053; 83690; 84703; 85025; 85378; 93005; 96374; 96375; 99285; J2060; J2405

== ENCOUNTER 2025-07-04 17:32 | Emergency (ER) | payer SELFPAY ==
[2025-07-04 17:41] VITALS: BP 134/79; PULSE 66; TEMP 36.8; O2SAT 97
--- NOTE | 2025-07-04 17:49 | ECG_ITS ---
[facility] Date: 2025-07-04 Pat Name: Mignon Kapoor Department: Room: Gender: Female Globe Tester: : 2000 Requested By: Albert Garduno Order Number: [id number] Simón MD: Tova Farias M.D. Measurements Intervals Walker Rate: 77 P: 63 VA: 119 QRS: 44 QRSD: 81 T: 76 QT: 360 QTc: 408 Interpretive Statements SINUS RHYTHM WITH MARKED SINUS ARRHYTHMIA WITH SHORT VA INTERVAL INTERPRETATION BASED ON A DEFAULT AGE OF 40 YEARS Compared to ECG 07/04/2025 08:36:05 Short VA interval now present Electronically Signed On 07-07-2025 20:49:19 CDT by Tova Farias M.D. [email or web address] [id number]
== END 2025-07-04 19:45 | disposition left against medical advice (07) ==
LOC: ER 17:37
PROVIDERS: Emergency Provider Family Medicine; PCP Family Medicine
DX: I49.8 Other specified cardiac arrhythmias (principal); Z53.21 Procedure and treatment not carried out due to patient leaving prior to being seen by health care provider
CPT/HCPCS: 93005

== ENCOUNTER 2025-07-05 10:13 | Emergency (ER) | payer SELFPAY ==
[2025-07-05 10:23] VITALS: BP 123/69; PULSE 75; RESP 18; TEMP 36.8; O2SAT 99; BMI 23.0
[2025-07-05 10:57] LABS: Hematocrit 39.0 % (36-47); Hemoglobin 12.60 g/dL (11.27-16.99); Mean Corpuscular HGB Conc 32.3 g/dL (30-55); Mean Corpuscular Hemoglobin 28.8 pg (27-33); Mean Corpuscular Volume 89.0 fl (85-98); Nucleated Red Blood Cells % 0 %; Platelet Count 267 10^3/cmm (157-399); Red Blood Count 4.38 10^6/uL (3.85-5.65); White Blood Count 5.02 10^3/uL (3.29-11.43)
[2025-07-05 11:06] LABS: HCG, Serum Qual Negative (Negative)
--- NOTE | 2025-07-05 11:13 | ED_ITS ---
HPI - General Adult 2 General: Chief complaint: Nausea/Vomiting/Diarrhea Stated complaint: hot and cold flashes and cant keep anything down Time Seen by Provider: 07/05/25 10:54 History of Present Illness: 25yo F w/pmhx of anxiety presents w/cc o f poor appetite since Thursday, stating that she has not been able to keep any food down. Patient has not had a fever. Patient states she has had mild nasal congestion but denies sore throat or runny nose. Patient states she feels a little bit short of breath despite the fact that SpO2 is 100% on room air, her breathing is not labored. When asked to elaborate, she states she just feels like she cannot get a deep breath and though she denies pain with respirations, cough, hemoptysis or chest pain. She denies abdominal pain. She states she has mild generalized abdominal discomfort. Patient denies any dysuria or hematuria. She states that in the past few days she has noted streaks in her stool, on the toilet paper in the toilet bowl. She also states she gets dizzy when she stands for too long. She denies taking any medications and has not had any abdominal surgeries. Patient states she vapes but otherwise denies alcohol, tobacco or marijuana. Related Data Allergies Allergy/AdvReac Type Severity Reaction Status Date / Time No Known Allergies Allergy Verified 07/04/25 17:47 [facility] ED 2 [facility]: Medical History (Updated 07/05/25 @ 11:21 by Tamika Rockwell MD) No pertinent past medical history Social History Substance/Drug Use: never Physical Exam 2 Narrative: EXAM NARRATIVE: Vital signs were reviewed. Patient is alert and oriented. Patient is breathing comfortably, no increased WOB or accessory muscle use. SpO2 is above 95% on RA. No hypotension or tachycardia. Patient is moving all extremities, no deformity or gross injury. Patient is ambulatory. Course 2 Vital Signs: Vital signs: Vital Signs Temperature 98.3 F 07/05/25 10:23 Pulse Rate 75 07/05/25 10:23 Respiratory Rate 18 07/05/25 10:23 Blood Pressure 123/69 07/05/25 10:23 Pulse Oximetry 99 07/05/25 10:23 Oxygen Delivery Me thod Room Air 07/05/25 10:23 MDM - General Adult Medical Decision Making 25-year-old female presenting with a chief complaint of malaise, poor appetite, inability to tolerate food at home since Thursday, blood in her stool. Differential diagnosis includes, but is not limited to, upper versus lower GI bleed, urinary tract infection, pelvic infection, pulmonary infection, viral upper respiratory syndrome such as COVID-19 or influenza, dehydration, anemia, electrolyte abnormality, other. On exam, patient is normotensive. Patient is not tachycardic and her SpO2 is 99 to 100% on room air. She is breathing comfortably and is afebrile. Overall, patient is well-appearing. Patient states that she felt dismissed yesterday despite the fact that she had a full workup including a CBC a BMP a D-dimer yesterday. I explained to patient that while I may not be able to give her an exact answer as to what is going on today and she may require further outpatient follow-up, we can redo lab work to rule out any underlying medical emergency. Patient is concerned about being septic. Her vital signs and lab work do not indicate that this is the case. Patient stated that she has a follow-up appointment with her primary care physician tomorrow. We did discuss an outpatient colonoscopy given your blood in stool. Patient became upset that we will not be able to figure out what is going on today provided that there is not a medical emergency present and decided to leave the emergency department prior to completion of her workup. Patient did not allow me to physically examine her before she left. Patient stated I cannot walk as she got out of bed, grabbed her purse and walked out of the emergency department without any difficulty. She left prior to receiving her discharge paperwork. Patient and family were counseled to return should her condition worsen. Lab Data 07/05/25 10:45 07/05/25 10:45 Laboratory Results WBC 5.02 10^3/uL (3.29-11.43) 07/05/25 10:45 RBC 4.38 10^6/uL (3.85-5.65) 07/05/25 10:45 Hgb 12.60 g/dL (11.27-16.99) 07/05/25 10:45 Hct 39.0 % (36-47) 07/05/25 10:45 MCV 89.0 fl (85-98) 07/05/25 10:45 MCH 28.8 pg (27-33) 07/05/25 10:45 MCHC 32.3 g/dL (30-55) 07/05/25 10:45 RDW 13.4 % (12.1-15.1) 07/05/25 10:45 Plt Count 267 10^3/cmm (157-399) 07/05/25 10:45 MPV 9.5 fL (7.4-10.4) 07/05/25 10:45 Neut % (Auto) 65.5 % 07/05/25 10:45 Lymph % (Auto) 24.7 % 07/05/25 10:45 [place] % (Auto) 9.0 % 07/05/25 10:45 Eos % (Auto) 0.0 % 07/05/25 10:45 Baso % (Auto) 0.6 % 07/05/25 10:45 Neut # (Auto) 3.29 10^3/uL (1.8-7.7) 07/05/25 10:45 Lymph # (Auto) 1.2 10^3/uL (0.8-4.8) 07/05/25 10:45 [place] # (Auto) 0.5 10^3/uL (0.2-0.9) 07/05/25 10:45 Eos # (Auto) 0.0 10^3/uL (0.0-0.8) 07/05/25 10:45 Baso # (Auto) 0.0 10^3/uL (0.0-0.1) 07/05/25 10:45 Nucleated RBC % (auto) 0 % 07/05/25 10:45 Nucleated RBCs # 0.0 /100WBC 07/05/25 10:45 Sodium 141 mmol/L (136-145) 07/05/25 10:45 Chloride 102 mmol/L (98-107) 07/05/25 10:45 Carbon Dioxide 23 mmol/L (22-29) 07/05/25 10:45 BUN 8 mg/dL (6-20) 07/05/25 10:45 Creatinine 0.7 mg/dL (0.5-0.9) 07/05/25 10:45 GFR Calculation 103.7 mL/min (90-130) 07/05/25 10:45 Glucose 94 mg/dL (65-115) 07/05/25 10:45 Calculated Osmolality 290 mOsm/kg (285-295) 07/05/25 10:45 Calcium 9.9 mg/dL (8.5-10.5) 07/05/25 10:45 Magnesium 1.8 mg/dL (1.7-2.3) 07/05/25 10:45 AST 28 U/L (0-32) 07/05/25 10:45 Alkaline Phosphatase 63 U/L (35-105) 07/05/25 10:45 Total Protein 8.4 g/dL (6.6-8.7) 07/05/25 10:45 Albumin 4.9 g/dL (3.5-5.2) 07/05/25 10:45 Globulin 3.5 g/dL (1.3-4.6) 07/05/25 10:45 TSH 1.53 uIU/mL (0.27-4.20) 07/05/25 10:45 HCG, Qual Negative (Negative) 07/05/25 10:45 No radiology studies performed this visit Discharge Plan Discharge Patient Disposition: Home Clinical Impression: Poor appetite, Malaise, BRBPR (bright red blood per rectum) Nausea & vomiting Qualifiers: Vomiting type: unspecified Qualified Code(s): R11.2 - Nausea with vomiting, unspecified Condition: Stable Discharge Orders: Discharge ED (Routine); Ordered 07/05/25 Ordered By: Tamika Rockwell Referrals: Francesca Erickson MD [Primary Care Provider, Family Practice] Patient Instructions: Opioid Safety, Pain Management, Patient Portal & Mike Instructions Print Language: Tanzanian Coding Level of Care Code ED Die Hardener for Kimberly Momin
--- NOTE | 2025-07-05 11:14 | PC.NURSE ---
PT WALKED OUT OF ER BEFORE DISCHARGE WAS DONE
[2025-07-05 11:19] LABS: Alanine Aminotransferase 51 U/L (0-33); Albumin Level 4.9 g/dL (3.5-5.2); Alkaline Phosphatase 63 U/L (35-105); Anion Gap 19.4 (5-19); Aspartate Amino Transferase 28 U/L (0-32); Blood Urea Nitrogen 8 mg/dL (6-20); Calcium 9.9 mg/dL (8.5-10.5); Carbon Dioxide 23 mmol/L (22-29); Chloride 102 mmol/L (98-107); Creatinine Clr Calc Pharmacy 108.5797; Globulin 3.5 g/dL (1.3-4.6); Glucose 94 mg/dL (65-115); Magnesium 1.8 mg/dL (1.7-2.3); Osmolality Calculated 290 mOsm/kg (285-295); Potassium 3.4 mmol/L (3.5-5.1); Sodium 141 mmol/L (136-145); Thyroid Stimulating Hormone 1.53 uIU/mL (0.27-4.20); Total Protein 8.4 g/dL (6.6-8.7)
== END 2025-07-05 11:21 | disposition home or self-care (01) ==
PROVIDERS: Emergency Medicine; Emergency Provider Emergency Medicine; PCP Family Medicine
DX: R63.8 Other symptoms and signs concerning food and fluid intake (principal); R53.81 Other malaise; K62.5 Hemorrhage of anus and rectum; R11.2 Nausea with vomiting, unspecified
CPT/HCPCS: 36415; 80053; 83735; 84443; 84703; 85025; 99283